=== PATIENT | male | born 1995 | race Caucasian/White ===

== ENCOUNTER 2018-07-15 20:47 | Emergency (ER) | payer SELFPAY ==
[2018-07-15 20:59] VITALS: TEMP 97.6
[2018-07-15] MEDS ORDERED: NORVASC 5MG5 MG/TAB PO (22:59)
[2018-07-15 23:40] VITALS: BP 146/98; PULSE 87
== END 2018-07-15 23:40 | disposition home or self-care (01) ==
LOC: COL.ER 20:47
DX: R04.0 Epistaxis (principal); I10 Essential (primary) hypertension